=== PATIENT | female | born 1995 | race Hispanic/Latino ===

== ENCOUNTER 2020-12-26 16:47 | Outpatient (CLI) | payer OTHER ==
[2020-12-27 02:53] LABS: SARS-CoV-2 PCR by NAA Not Detected (NotDetected)
== END 2020-12-26 16:48 | disposition home or self-care (01) ==
LOC: CSHLAB 16:47
PROVIDERS: ATTEND Family Medicine
DX: Z20.822 Contact with and (suspected) exposure to COVID-19 (principal)
CPT/HCPCS: 87635; U0003; U0005

== ENCOUNTER 2020-12-28 06:38 | Inpatient (IN) | payer OTHER ==
[2020-12-28 07:14] VITALS: BMI 35.6
[2020-12-28] MEDS ORDERED: Bupivacaine 0.25% HCL 30 ML VIAL ONE (08:00)
[2020-12-28] MEDS ORDERED: Misoprostol 200 MCG TAB PR PRN (09:51)
[2020-12-28] MEDS ORDERED: Lidocaine 1% (PF) 30 ML VIAL SC PRN (09:51)
[2020-12-28] MEDS ORDERED: Methylergonovine 0.2 MG/ML VIAL IM PRN (09:51)
[2020-12-28] MEDS ORDERED: Ondansetron PF 4 MG/2 ML Vial IVP PRN (09:51)
[2020-12-28] MEDS ORDERED: Ibuprofen 800 MG TAB PO PRN (09:51)
[2020-12-28] MEDS ORDERED: Carboprost 250 MCG/ML AMP IM PRN (09:51)
[2020-12-28] MEDS ORDERED: Promethazine HCl 25 MG/ML VIAL IM PRN (09:51)
[2020-12-28] MEDS ORDERED: hydrALAZINE 20 MG/ML VIAL SLOW IVP PRN (09:51)
[2020-12-28] MEDS ORDERED: Penicillin G Potassium 5 MILL.UNITS in Sodium Chloride 0.9% 100 ML IVPB SCH (10:00)
[2020-12-28] MEDS ORDERED: NS w/ Oxytocin 30 units 500 ML IV PRN (10:12)
[2020-12-28 10:50] LABS: Hemoglobin 13.3 g/dL (12.0-15.5); Mean Corpuscular HGB CONC 33.1 g/dL (32.0-36.0); Mean Corpuscular Hemoglobin 27.4 pg (27.0-33.0); Mean Corpuscular Volume 82.9 fl (81.6-98.3); Mean Platelet Volume 10.4 fl (7.4-10.4); Platelet Count 271 10x3/uL (150-450); Red Blood Cell (RBC) Count 4.85 10x6/uL (3.90-5.03); White Blood Cell (WBC) Count 11.3 10x3/uL (3.5-10.5)
[2020-12-28] MEDS: Lactated Ringer's 1,000 ML IV SCH ×4 (11:21→19:06)
[2020-12-28 11:28] LABS: Syphilis Antibody Nonreactive (Nonreactive); Syphilis Antibody Index 0.04 S/CO (<1.00 Non-Reactive)
[2020-12-28 11:29] LABS: Hep B Surf Ag Non-Reactive S/CO (NonReactive)
[2020-12-28 11:30] LABS: HBSAg Index 0.18 S/CO (0-0.99)
[2020-12-28] MEDS: Penicillin G 2.5 MILL.units 2.5 MILL.UNITS in Premix Bag 1 BAG IVPB SCH ×3 (15:02→23:05)
[2020-12-29] MEDS: Penicillin G 2.5 MILL.units 2.5 MILL.UNITS in Premix Bag 1 BAG IVPB SCH ×3 (03:18→23:04)
[2020-12-29] MEDS ORDERED: Fentanyl 4 mcg/Bup 0.1% Cadd 100 ML ONE ×2 (10:16→18:28)
[2020-12-29] MEDS ORDERED: Ondansetron PF 4 MG/2 ML Vial ONE (18:02)
[2020-12-30] MEDS ORDERED: Misoprostol 200 MCG TAB ONE (00:04)
[2020-12-30] MEDS ORDERED: Methylergonovine 0.2 MG/ML VIAL ONE (01:04)
[2020-12-30] MEDS ORDERED: Lidocaine 1% (PF) 30 ML VIAL ONE (01:04)
[2020-12-30] MEDS ORDERED: hydrALAZINE 20 MG/ML VIAL SLOW IVP PRN (03:33)
[2020-12-30] MEDS ORDERED: Promethazine HCl 25 MG/ML VIAL IM PRN (03:33)
[2020-12-30] MEDS ORDERED: HYDROcodone/Acetaminophen 5/325 mg Tablet PO PRN ×2 (03:33)
[2020-12-30] MEDS ORDERED: Benzocaine-Menthol 82.5 ML CAN TOP PRN (03:33)
[2020-12-30] MEDS ORDERED: Lanolin Ointment 7 GM TUBE TOP PRN (03:33)
[2020-12-30] MEDS ORDERED: NS / Oxytocin 40 units/1000ml 1,000 ML IV SCH (03:33)
[2020-12-30] MEDS ORDERED: Milk Of Magnesia 30 ML UDCUP PO PRN (03:33)
[2020-12-30] MEDS ORDERED: diphenhydrAMINE 25 MG CAP PO PRN (03:33)
[2020-12-30] MEDS ORDERED: Ondansetron PF 4 MG/2 ML Vial IVP PRN (03:33)
[2020-12-30] MEDS ORDERED: Bisacodyl 10 MG SUPP PR PRN (03:33)
[2020-12-30] MEDS: Penicillin G 2.5 MILL.units 2.5 MILL.UNITS in Premix Bag 1 BAG IVPB SCH ×2 (03:35→03:36)
[2020-12-30] MEDS: Lactated Ringer's 1,000 ML IV SCH (03:36)
[2020-12-30] MEDS ORDERED: NS w/ Oxytocin 30 units 500 ML IV SCH (03:45)
[2020-12-30] MEDS: Ibuprofen 800 MG TAB PO SCH ×3 (05:12→21:19)
[2020-12-30] MEDS: Docusate Calcium (SURFAK) 240 MG CAP PO SCH ×2 (08:45→21:19)
[2020-12-30] MEDS: Prenatal Vitamin 1 TAB PO SCH (08:45)
[2020-12-30] MEDS ORDERED: Adacel (T-DAP) 0.5 ML SYRINGE IM ONE (09:00)
[2020-12-30] MEDS: Ferrous Sulfate 325 MG TAB PO SCH (18:43)
[2020-12-31] MEDS: Ibuprofen 800 MG TAB PO SCH ×3 (05:11→21:57)
[2020-12-31] MEDS: Ferrous Sulfate 325 MG TAB PO SCH ×2 (08:02→17:28)
[2020-12-31] MEDS: Prenatal Vitamin 1 TAB PO SCH (09:35)
[2020-12-31] MEDS: Docusate Calcium (SURFAK) 240 MG CAP PO SCH ×2 (09:35→21:57)
[2021-01-01] MEDS: Ibuprofen 800 MG TAB PO SCH (05:51)
[2021-01-01 08:06] VITALS: BP 113/79; TEMP 97.8
[2021-01-01] MEDS: Prenatal Vitamin 1 TAB PO SCH (08:16)
[2021-01-01] MEDS: Docusate Calcium (SURFAK) 240 MG CAP PO SCH (08:16)
[2021-01-01] MEDS: Ferrous Sulfate 325 MG TAB PO SCH (08:38)
[2021-01-01] MEDS ORDERED: Measles/Mumps/Rubella 10 MCG/0.5 ML VIAL SC ONE (11:45)
== END 2021-01-01 12:15 | disposition home or self-care (01) | DRG 806 ==
LOC: CSHLD/OP 06:38 → CSHLD 09:38 → CSHPP 12-30 03:29
PROVIDERS: ADMIT Family Medicine; ATTEND Family Medicine
PROC: 10E0XZZ Delivery of Products of Conception, External Approach (ICD-10-PCS; principal; 2020-12-28)
PROC: 0UQMXZZ Repair Vulva, External Approach (ICD-10-PCS; 2020-12-28)
DX: O99.214 Obesity complicating childbirth (principal); O98.82 Other maternal infectious and parasitic diseases complicating childbirth; E66.9 Obesity, unspecified; O69.81X0 Labor and delivery complicated by cord around neck, without compression, not applicable or unspecified; B95.1 Streptococcus, group B, as the cause of diseases classified elsewhere; O70.0 First degree perineal laceration during delivery; Z37.0 Single live birth; Z3A.40 40 weeks gestation of pregnancy
CPT/HCPCS: 51702; 85027; 86780; 86850; 86900; 86901; 87340; 99285; J2405; J2540; J3490; S0020

== ENCOUNTER 2022-08-20 08:18 | Emergency (ER) | payer OTHER ==
[2022-08-20] MEDS ORDERED: Ondansetron PF 4 MG/2 ML Vial ONE (09:16)
[2022-08-20] MEDS ORDERED: Ketorolac Tromethamine 30 MG/ML VIAL ONE (09:16)
[2022-08-20 09:24] LABS: Bilirubin Neg (Negative); Blood, Urine 10 (Negative); Clarity Clear (Clear); Glucose, Urine (Dipstick) Normal (Negative); Ketone, Urine Negative (Negative); Leukocyte 25 (Negative); Nitrite Positive (Negative); Protein, Urine (Dipstick) 15 mg/dl (Neg-Trace); Specific Gravity, Urine 1.015 (1.005-1.030); Urobilinogen Normal mg/dL (Less than 2); pH, Urine 6.5 (5.0-9.0)
[2022-08-20 09:27] LABS: Pregnancy Test - Urine (BHCG) Negative (Negative); Pregu Control Background? CLEAR/WHITE (CLR/WHITE); Pregu Control Bar Appear? YES (CONTROL BAR); Specific Gravity 1.015 (1.002-1.036)
[2022-08-20 09:31] LABS: #Eosinphils 0.1 10x3/uL (0.0-0.5); #Monocytes 0.5 10x3/uL (0.0-1.1); %Basophils 0.5 % (0.0-2.0); %Eosinophils 1.1 % (0.0-6.0); %Lymphocytes 28.9 % (18.0-47.0); %Monocytes 7.4 % (0.0-10.0); %Neutrophils 61.9 % (40.0-75.0); Hemoglobin 12.9 g/dL (12.0-15.5); Mean Corpuscular HGB CONC 33.5 g/dL (32.0-36.0); Mean Corpuscular Hemoglobin 27.3 pg (27.0-33.0); Mean Corpuscular Volume 81.6 fl (81.6-98.3); Mean Platelet Volume 10.7 fl (7.4-10.4); Platelet Count 253 10x3/uL (150-450); RBC Distribution Width 12.6 % (11.5-14.5); Red Blood Cell (RBC) Count 4.72 10x6/uL (3.90-5.03); White Blood Cell (WBC) Count 6.5 10x3/uL (3.5-10.5)
[2022-08-20 09:33] LABS: Bacteria/HPF 3+ HPF (None Seen); RBC/HPF 0-3 HPF (0-3); Squamous Epithelial 0-3 HPF (0-3); WBC/HPF 0-3 HPF (0-3)
[2022-08-20 09:41] LABS: ALT (SGPT) 34 U/L (8-55); AST (SGOT) 26 U/L (5-34); Albumin 4.4 g/dL (3.5-5.0); Alkaline Phosphatase 59 U/L (40-110); Anion Gap 12 mmol/L (10-20); BUN (Urea Nitrogen) 13 mg/dL (7.0-18.7); Bilirubin, Total 0.7 mg/dL (0.2-1.2); CK (CPK) 69 U/L (29-168); Calc. Creatinine Clearance 0 mL/min (70-130); Calcium 9.5 mg/dL (7.8-10.44); Carbon Dioxide 24 mmol/L (22-29); Chloride 105 mmol/L (98-107); Estimated GFR 119; Globulin 3.2 g/dL (2.4-3.5); Glucose 88 mg/dL (70-105); Lipase 17 U/L (8-78); Potassium 3.8 mmol/L (3.5-5.1); Protein, Total 7.6 g/dL (6.0-8.3); Sodium 137 mmol/L (136-145)
[2022-08-20] MEDS ORDERED: cefTRIAXone\\ROCEPHIN 2 GM VIAL ONE (09:55)
== END 2022-08-20 10:41 | disposition home or self-care (01) ==
LOC: CSHERS 08:18
DX: N30.00 Acute cystitis without hematuria (principal); N12 Tubulo-interstitial nephritis, not specified as acute or chronic
CPT/HCPCS: 80053; 81003; 81015; 81025; 82550; 83690; 85025; 96365; 96375; J0696; J1885; J2405

== ENCOUNTER 2023-07-10 05:00 | Inpatient (IN) | payer OTHER ==
[2023-07-10 19:56] VITALS: BMI 33.2
[2023-07-10] MEDS ORDERED: Diphenoxylate HCl/Atropine Tablet PO PRN (20:00)
[2023-07-10] MEDS ORDERED: Misoprostol 200 MCG TAB PR PRN (20:00)
[2023-07-10] MEDS ORDERED: Tranexamic Acid 1,000 MG/10 ML VIAL IVP PRN (20:00)
[2023-07-10] MEDS ORDERED: hydrALAZINE 20 MG/ML VIAL SLOW IVP PRN (20:00)
[2023-07-10] MEDS ORDERED: Promethazine HCl 25 MG/ML VIAL IM PRN (20:00)
[2023-07-10] MEDS ORDERED: Methylergonovine 0.2 MG/ML VIAL IM PRN (20:00)
[2023-07-10] MEDS ORDERED: Carboprost 250 MCG/ML AMP IM PRN (20:00)
[2023-07-10] MEDS ORDERED: Lidocaine 1% (PF) 30 ML VIAL SC PRN (20:00)
[2023-07-10] MEDS ORDERED: Penicillin G Potassium 5 MILL.UNITS in Sodium Chloride 0.9% 100 ML IVPB SCH (20:00)
[2023-07-10] MEDS ORDERED: Oxytocin 30 units/NS 500 ML 500 ML IV SCH ×2 (20:00)
[2023-07-10] MEDS ORDERED: Ondansetron PF 4 MG/2 ML Vial IVP PRN (20:00)
[2023-07-10] MEDS: Misoprostol 100 MCG TAB VAG SCH (21:04)
[2023-07-10 21:07] LABS: Hematocrit 36.7 % (34.9-44.5); Hemoglobin 11.7 g/dL (12.0-15.5); Mean Corpuscular HGB CONC 31.9 g/dL (32.0-36.0); Mean Corpuscular Hemoglobin 25.3 pg (27.0-33.0); Mean Corpuscular Volume 79.4 fl (81.6-98.3); Mean Platelet Volume 11.1 fl (7.4-10.4); Platelet Count 316 10x3/uL (150-450); RBC Distribution Width 16.8 % (11.5-14.5); Red Blood Cell (RBC) Count 4.62 10x6/uL (3.90-5.03)
[2023-07-10 21:15] LABS: ALT (SGPT) 9 U/L (8-55); AST (SGOT) 14 U/L (5-34); Albumin 3.6 g/dL (3.5-5.0); Alkaline Phosphatase 226 U/L (40-110); Anion Gap 15 mmol/L (10-20); BUN (Urea Nitrogen) 11 mg/dL (7.0-18.7); Bilirubin, Total 0.2 mg/dL (0.2-1.2); Calc. Creatinine Clearance 182 mL/min (70-130); Calcium 9.4 mg/dL (7.8-10.44); Carbon Dioxide 17 mmol/L (22-29); Chloride 109 mmol/L (98-107); Estimated GFR 121; Globulin 3.4 g/dL (2.4-3.5); Glucose 87 mg/dL (70-105); Potassium 3.7 mmol/L (3.5-5.1); Sodium 137 mmol/L (136-145)
[2023-07-10 21:32] LABS: HBSAg Index 0.12 S/CO (0-0.99); Hep B Surf Ag - L&D Non-Reactive S/CO (NonReactive)
[2023-07-10 21:34] LABS: Syphilis Antibody Nonreactive (Nonreactive); Syphilis Antibody Index 0.05 S/CO (<1.00 Non-Reactive)
[2023-07-11] MEDS: Penicillin G 2.5 MILL.units 2.5 MILL.UNITS in Premix Bag 1 BAG IVPB SCH ×5 (04:34→18:22)
[2023-07-11] MEDS: Misoprostol 100 MCG TAB VAG SCH ×5 (04:35→15:03)
[2023-07-11] MEDS ORDERED: Lactated Ringer's 1,000 ML IV SCH (09:30)
[2023-07-11] MEDS ORDERED: Erythromycin Base 0.5% Oint 1 GM TUBE ONE (14:26)
[2023-07-11] MEDS ORDERED: Hepatitis B Vaccine 10 MCG/0.5 ML SYR ONE (14:26)
[2023-07-11] MEDS ORDERED: Phytonadione Neonatal 1 MG/0.5 ML AMP ONE (14:26)
[2023-07-11] MEDS ORDERED: Milk Of Magnesia 30 ML UDCUP PO PRN (16:19)
[2023-07-11] MEDS ORDERED: hydrALAZINE 20 MG/ML VIAL SLOW IVP PRN (16:19)
[2023-07-11] MEDS ORDERED: Boostrix 0.5 ML (Tdap) VIAL (>/=7 yrs of age) IM ONE (16:19)
[2023-07-11] MEDS ORDERED: Benzocaine-Menthol 82.5 ML CAN TOP PRN (16:19)
[2023-07-11] MEDS ORDERED: Lanolin Ointment 7 GM TUBE TOP PRN (16:19)
[2023-07-11] MEDS ORDERED: Bisacodyl 10 MG SUPP PR PRN (16:19)
[2023-07-11] MEDS: Ferrous Sulfate 325 MG TAB PO SCH (18:22)
[2023-07-11] MEDS: Docusate 100 MG CAP PO SCH (21:37)
[2023-07-11] MEDS: Ibuprofen 800 MG TAB PO PRN (21:37)
[2023-07-12] MEDS: Ibuprofen 800 MG TAB PO PRN ×2 (05:08→13:10)
[2023-07-12] MEDS: Ferrous Sulfate 325 MG TAB PO SCH ×2 (07:36→15:50)
[2023-07-12] MEDS: Docusate 100 MG CAP PO SCH (08:11)
[2023-07-12] MEDS ORDERED: Prenatal Vitamin 1 TAB PO SCH (09:00)
[2023-07-12 11:27] VITALS: BP 119/68; TEMP 97.9
== END 2023-07-12 17:15 | disposition home or self-care (01) | DRG 805 ==
LOC: CSHLD 18:20 → CSHPP 07-11 16:08
PROVIDERS: ADMIT Student in an Organized Health Care Education/Training Program; ATTEND Student in an Organized Health Care Education/Training Program
PROC: 10E0XZZ Delivery of Products of Conception, External Approach (ICD-10-PCS; principal; 2023-07-11)
PROC: 0HQ9XZZ Repair Perineum Skin, External Approach (ICD-10-PCS; 2023-07-11)
DX: O26.643 Intrahepatic cholestasis of pregnancy, third trimester (principal); K83.1 Obstruction of bile duct; Z37.0 Single live birth; O98.82 Other maternal infectious and parasitic diseases complicating childbirth; N12 Tubulo-interstitial nephritis, not specified as acute or chronic; Z3A.39 39 weeks gestation of pregnancy; O70.0 First degree perineal laceration during delivery; O99.824 Streptococcus B carrier state complicating childbirth; O99.02 Anemia complicating childbirth; D50.9 Iron deficiency anemia, unspecified; O99.214 Obesity complicating childbirth; E66.9 Obesity, unspecified; Z79.899 Other long term (current) drug therapy; B37.9 Candidiasis, unspecified
CPT/HCPCS: 36415; 80053; 85027; 86780; 86850; 86900; 86901; 87340; J2001; J2540; J2590; J3490; J7120